=== PATIENT | male | born 1970 | race Caucasian/White ===

== ENCOUNTER → 2022-10-23 | Outpatient (CLI) | payer BC, OTHER | LOC: MHCPAIN 10:54 | DX: M54.12 Radiculopathy, cervical region (principal); M54.2 Cervicalgia; Z98.890 Other specified postprocedural states | CPT/HCPCS: G0463 ==

== ENCOUNTER → 2022-11-15 | Outpatient (CLI) | payer BC, OTHER | LOC: MHCPAIN 14:57 | DX: M54.12 Radiculopathy, cervical region (principal); Z98.890 Other specified postprocedural states | CPT/HCPCS: G0463 ==

== ENCOUNTER 2024-05-04 20:47 | Emergency (ER) | payer BC ==
[~2024-05-04] VITALS: Ht 175.3 cm; Wt 90.9 kg
[2024-05-04 20:54] VITALS: BP 172/97; TEMP 98.5
[2024-05-04] MEDS ORDERED: Tetracaine 0.5% Ophth Soln 4 ML BOTTLE OP ONE (22:15)
[2024-05-04] MEDS ORDERED: Erythromycin 0.5% Ophth Oint 3.5 GM TUBE OP ONE (22:30)
[2024-05-04] MEDS ORDERED: ILOTYCIN5 MG/GM OP (22:48)
[2024-05-04 23:03] VITALS: PULSE 70
== END 2024-05-04 23:03 | disposition home or self-care (01) ==
LOC: COL.ER 20:47
DX: S05.01XA Injury of conjunctiva and corneal abrasion without foreign body, right eye, initial encounter (principal); W22.8XXA Striking against or struck by other objects, initial encounter; Y93.89 Activity, other specified